=== PATIENT | female | born 1985 | race Two or more races ===

== ENCOUNTER 2017-11-11 10:20 | Emergency (ER) | payer MEDICARE, MEDICAID ==
[~2017-11-11] VITALS: Ht 165.1 cm; Wt 96.2 kg
[2017-11-11 10:40] VITALS: BP 117/79
[2017-11-11] MEDS ORDERED: ALUM & MAG HYDROX-SIMETH LIQ(MAALOX) 30 ML PO ONE (11:45)
[2017-11-11] MEDS ORDERED: DONNATAL 5ml ORAL Elix (BELLADONNA ALK-PHENOBARB) PO ONE (11:45)
[2017-11-11] MEDS ORDERED: LIDOCAINE VISCOUS 2% 15ML UD PO ONE (11:45)
== END 2017-11-11 11:30 | disposition left against medical advice (07) ==
LOC: ER 10:20
DX: R10.9 Unspecified abdominal pain (principal); Z53.21 Procedure and treatment not carried out due to patient leaving prior to being seen by health care provider

== ENCOUNTER 2018-09-26 15:50 | Emergency (ER) | payer MEDICARE, MEDICAID ==
[~2018-09-26] VITALS: Ht 162.6 cm; Wt 97.1 kg
[2018-09-26 16:12] VITALS: BP 130/68
== END 2018-09-26 17:03 | disposition home or self-care (01) ==
LOC: ER 15:50
DX: S83.91XA Sprain of unspecified site of right knee, initial encounter (principal); W01.0XXA Fall on same level from slipping, tripping and stumbling without subsequent striking against object, initial encounter; Y93.89 Activity, other specified; Y99.8 Other external cause status; Y92.89 Other specified places as the place of occurrence of the external cause
CPT/HCPCS: 73562

== ENCOUNTER 2020-02-18 18:30 | Emergency (ER) | payer MEDICARE, MEDICAID ==
[~2020-02-18] VITALS: Ht 165.1 cm; Wt 103.0 kg
[2020-02-18 19:46] LABS: Basophils # (auto) 0.1 10 ^3/uL (0-0.2); Basophils % (auto) 0.7 % (0.0-2.0); Eosinophils # (auto) 0 10 ^3/uL (0-0.8); Eosinophils % (auto) 0.3 % (0.0-7.0); Hematocrit 35.3 % (36.0-46.0); Hemoglobin 11.8 g/dL (12.2-16.2); Lymphocytes # (auto) 1.7 10 ^3/uL (0.4-5.4); Lymphocytes % (auto) 18.1 % (10.0-50.0); Mean Corpuscular Hemoglobin 27.2 pg (28.0-32.0); Mean Corpuscular Hgb Conc. 33.4 g/dL (32.0-36.0); Mean Corpuscular Volume 81.2 fL (80.0-100.0); Monocytes # (auto) 0.3 10 ^3/uL (0-1.3); Monocytes % (auto) 3.6 % (0.0-12.0); Neutrophils # (auto) 7.3 10 ^3/uL (1.6-8.6); Neutrophils % (auto) 77.3 % (37.0-80.0); Platelet Count (auto) 423 10^3/uL (140-450); Red Blood Cells 4.35 10^6/uL (4.0-5.20); Red Cell Distribution Width 13.6 % (11.8-14.3); White Blood Cell 9.4 10^3/uL (4.4-10.8)
[2020-02-18 20:03] LABS: Albumin 3.9 g/dL (3.4-5.0); BUN/Creatinine Ratio 21.4; Calcium 8.5 mg/dL (8.5-10.1); Potassium 3.1 mmol/L (3.5-5.1)
[2020-02-18 20:06] LABS: Bilirubin, Total 0.7 mg/dL (0.2-1.0); Total Protein 7.9 g/dL (6.4-8.2)
[2020-02-18] MEDS ORDERED: POTASSIUM CHL 20 Meq TABLET PO ONE (21:45)
[2020-02-18 22:30] VITALS: BP 120/70
== END 2020-02-18 23:48 | disposition home or self-care (01) ==
LOC: ER 18:32
DX: N93.9 Abnormal uterine and vaginal bleeding, unspecified (principal); R93.89 Abnormal findings on diagnostic imaging of other specified body structures; D64.9 Anemia, unspecified; E87.6 Hypokalemia
CPT/HCPCS: 36415; 76856; 80053; 84702; 85025

== ENCOUNTER 2025-02-02 18:20 | Emergency (ER) | payer MEDICARE, MEDICAID ==
[~2025-02-02] VITALS: Ht 162.6 cm; Wt 95.4 kg
[2025-02-02 19:42] VITALS: BP 152/60; PULSE 92; RESP 16; TEMP 97.8; O2SAT 97
--- NOTE | 2025-02-02 19:47 | ED.PDOC ---
Musculoskeletal HPI Comments 39 year old female presents to ER with complaints of right 4th finger pain x 1 day. Patient states she started experiencing pain/swelling/bruising to right 4th finger yesterday evening s/p her right 4th finger getting caught in her dogs leash while her dog yanked on the leash. She rates her current pain a 9/10 to right 4th finger without radiation. Patients to ER with frog splint and mild swelling/TTP/ecchymosis at base of proximal phalanx of right 4th finger. 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 Family History Family History: Unknown Social History Smoker: Non-Smoker Alcohol: Denies ETOH Use Drugs: Denies Drug Use Lives In: Home Constitutional: denies: chills, diaphoresis, fatigue, fever, malaise, sweats, weakness, others EENTM: denies: blurred vision, double vision, ear bleeding, ear discharge, ear drainage, ear pain, ear ringing, eye pain, eye redness, hearing loss, mouth pain, mouth swelling, nasal discharge, nose bleeding, nose congestion, nose pain, photophobia, tearing, throat pain, throat swelling, voice changes, others Respiratory: denies: cough, hemoptysis, orthopnea, SOB at rest, shortness of breath, SOB with excertion, stridor, wheezing, others Cardiovascular: denies: chest pain, dizzy spells, diaphoresis, Dyspnea on exertion, edema, irregular heart beat, left arm pain, lightheadedness, palpitations, PND, syncope, others Gastrointestinal: denies: abdomen distended, abdominal pain, blood streaked bowels, constipated, diarrhea, dysphagia, difficulty swallowing, hematemesis, melena, nausea, poor appetite, poor fluid intake, rectal bleeding, rectal pain, vomiting, others Genitourinary: denies: abnormal vagina bleeding, burning, dyspareunia, dysuria, flank pain, frequency, hematuria, incontinence, pain, , vagina discharge, urgency, others Neurological: denies: dizziness, fainting, headache, left sided numbness, left sided weakness, numbness, paresthesia, pre-existing deficit, right sided numbness, right sided weakness, seizure, speech problems, tingling, tremors, weakness, others Musculoskeletal: reports: others (As stated in HPI) Integumetry: reports: others (As stated in HPI) Allergic/Immunocompromised: denies: Difficulty Healing, Frequent Infections, Hives, Itching, others Hematologic/Lymphatic: denies: anemia, blood clots, easy bleeding, easy bru ising, swollen glands, others Endocrine: denies: excessive hunger, excessive sweating, excessive thirst, e xcessive urination, flushing, intolerance to cold, intolerance to heat, unexplained weight gain, unexplained weight loss, others Psychiatric: denies: anxiety, bipolar disorder, depression, hopeless, panic disorder, schizophrenia, sleepless, suicidal, others Physical Exam General Appearance: No Apparent Distress, Obese HEENT: PERRL/EOMI Neck: Full Range of Motion, Non-Tender, Normal Respiratory: Chest Non-Tender, Lungs Clear, No Accessory Muscle Use, No Respiratory Distress, Normal Breath Sounds Cardiovascular: No Murmur, No Gallop, Regular Rate/Rhythm Breast Exam: Deferred Gastrointestinal: NOT DONE Genitalia: Deferred Pelvic: Deferred Rectal: Deferred Extremities: Normal capillary refill Neurologic: Alert, No Motor Deficits, Normal Affect, Normal Mood, No Sensory Deficits Cerebellar Function: Normal Reflexes: Normal Skin: Dry, Warm, Other (Mild swelling/TTP/ecchymosis at base of proximal phalanx of right 4th finger. No nailbed injury/further skin changes noted. Slight limitation on flexion of right 4th finger noted. Pulses intact) Peripheral Pulses: 2+ Radial (R), 2+ Radial (L), 2+ Brachial (R), 2+ Brachial (L) Lymphatic: No Adenopathy Was a procedure done? 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 ATED BY: SHARAN MAY MD DICTATED DATE/TIME: 02/02/251999 SIGNED BY: SHARAN MAY MD SIGNED DATE/TIME: 02/02/251999 CC: waiver signed Patient neurovascularly intact Advised on continued use of frog splint Advised on rest/no strenuous activity, elevation and alternate ice on/off as needed for pain/swelling Advised to follow up with PCP and orthopedic hand specialist in 1-2 days Patient verbalized understanding and agreeable with current plan of care Advised to return to ER immediately if symptoms worsen Images Reviewed?: Images reviewed and evaluated by me Time of 1ST Reevaluation: 19:42 Reevaluation 1ST: N/A Patient Education/Counseling: Diagnosis, Treatment, Prognosis, Need For Follow Up Family Education/Counseling: No Family Present Departure 1 Departure Time of Disposition: 19:42 Impression: Primary Impression: Finger fracture, right Qualified Codes: S62.614A - Displaced fracture of proximal phalanx of right ring finger, initial encounter for closed fracture Disposition: 01 HOME / SELF CARE / HOMELESS Condition: Stable e-Prescriptions Ibuprofen (Ibuprofen) 800 Mg Tab 1 TAB PO TID PRN, #30 TAB 0 Refills Prov: BILLIE TEIXEIRA 02/02/25 Critical Care Note Critical Care Time?: No Stability Stability form required: No Heart Score Heart Score: Heart Score Response (Comments) Value History N/A 0 EKG N/A 0 Age N/A 0 Risk Factors N/A 0 Troponin N/A 0 Total 0 BILLIE ETIXEIRA Feb 02, 2025 19:47
[2025-02-02] MEDS ORDERED: IBUP-1456 PO (19:51)
--- NOTE | 2025-02-02 20:02 | DVH ---
EXAM: XY R 4TH FINGER XRAY CLINICAL INDICATION: right 4th finger pain TECHNIQUE: XY R 4TH FINGER XRAY Comparison: None FINDINGS/IMPRESSION: Displaced fracture at the base of the 4th proximal phalanx.
== END 2025-02-02 20:11 | disposition home or self-care (01) ==
LOC: ER 18:20
DX: S62.614A Displaced fracture of proximal phalanx of right ring finger, initial encounter for closed fracture (principal); X58.XXXA Exposure to other specified factors, initial encounter; Y93.89 Activity, other specified; Y92.89 Other specified places as the place of occurrence of the external cause; Y99.8 Other external cause status
CPT/HCPCS: 73140